=== PATIENT | female | born 1990 | race Two or more races ===

== ENCOUNTER 2022-06-28 19:43 | Emergency (ER) | payer OTHER ==
[~2022-06-28] VITALS: Ht 165.1 cm; Wt 61.2 kg
--- NOTE | 2022-06-28 19:55 | NUR ---
STARLA ORNELAS AT [facility] FOR EKG
--- NOTE | 2022-06-28 19:55 | NUR ---
TO ER BED 1. BIBS C/O PALPITATIONS X 2 HOURS. PT STATES SHE WAS AT REST WHEN EPISODE BEGAN, HISTORY OF PALPITATIONS ONCE BEFORE. DENIES ANY CHEST PAIN OR SOB. CONNECTED TO MONITOR. AWAITING MD SANTAMARIA.
[2022-06-28] MEDS ORDERED: IV NS 0.9% 1,000 ML BAG IV ONE (21:00)
--- NOTE | 2022-06-28 21:03 | NUR ---
IV LINE ESTABLISHED , [id number]
[2022-06-28 21:10] LABS: BASOPHILS % (AUTO) 0.4 % (0.0-2.0); EOSINOPHILS % (AUTO) 1.1 % (0.0-6.0); HEMATOCRIT 41 % (33-45); HEMOGLOBIN 14.2 g/dL (11.5-14.8); LYMPHOCYTES # (AUTO) 1.6 K/uL (0.8-4.8); LYMPHOCYTES % (AUTO) 20.5 % (20.0-44.0); MEAN CORPUSCULAR HGB CONC 34 g/dl (31.0-36.0); MEAN CORPUSCULAR VOLUME 92 fL (82-100); MONOCYTES # (AUTO) 0.6 K/uL (0.1-1.30); NEUTROPHILS # (AUTO) 5.4 K/uL (1.8-8.9); PLATELET COUNT (AUTO) 325 K/uL (150-450); RED BLOOD CELL COUNT(AUTO) 4.51 MIL/uL (4.0-5.2); WHITE BLOOD COUNT (AUTO) 7.8 K/uL (4.3-11.0)
--- NOTE | 2022-06-28 21:20 | NUR ---
WEIVER SIGNED BY PT
[2022-06-28] MEDS ORDERED: IOHEXOL-350 100 ML VIAL IV ONE (21:33)
[2022-06-28] MEDS ORDERED: CT SWABBABLE VALVE TRANS SET 1 EA INFUS.SET MC ONE (21:33)
[2022-06-28] MEDS ORDERED: IV NS 0.9% 250 ML IV ONE (21:33)
[2022-06-28 21:44] LABS: CARBON DIOXIDE 29 mmol/L (21-32); CHLORIDE 104 mmol/L (98-107); CREATININE 0.9 mg/dL (0.6-1.3); GLUCOSE 102 mg/dL (74-106); SODIUM SERUM 139 mmol/L (136-145); UREA NITROGEN, BLOOD 13 mg/dL (7-18)
--- NOTE | 2022-06-29 00:52 | NUR ---
Patient discharged to home in stable condition. Written and verbal after care instructions given. Patient verbalizes understanding of instruction.
--- NOTE | 2022-06-29 00:52 | NUR ---
IV removed. Catheter intact and site benign. Pressure and 4x4 applied to site. No bleeding noted.
[2022-06-29 00:53] VITALS: BP 128/84
== END 2022-06-29 00:54 | disposition home or self-care (01) ==
LOC: ER 19:55
DX: R00.0 Tachycardia, unspecified (principal); R00.2 Palpitations
CPT/HCPCS: 99285; 96360; 71275; 71045; 93005; 85025; 80048; 85378; 84443; 84484 ×2; J7030; J7050; Q9967; 36415